=== PATIENT | female | born 1985 | race Caucasian/White ===

== ENCOUNTER 2018-05-23 22:02 | Inpatient (IN) ==
[2018-05-23] MEDS ORDERED: DEXTROSE 5%-LACTATED RINGERS 1,000 ML IV PRN (23:04)
[2018-05-23] MEDS ORDERED: OXYTOCIN/DEXTROSE 5%-WATER 30 UNITS/500 ML BAG IV ONE (23:04)
[2018-05-23] MEDS ORDERED: RINGER'S SOLUTION,LACTATED 1,000 ML IV ONE (23:04)
[2018-05-23] MEDS ORDERED: LIDOCAINE HCL/EPINEPHRINE 20 ML VIAL IJ ONE (23:39)
[2018-05-23] MEDS ORDERED: BUPIVACAINE HCL/0.9 % NACL/PF 250 ML EP PRN (23:41)
[2018-05-23] MEDS ORDERED: ONDANSETRON HCL/PF 2 MG/ML VIAL IV PRN (23:41)
[2018-05-23] MEDS ORDERED: NALOXONE HCL 1 MG/1 ML SYRG IV PRN (23:41)
[2018-05-23] MEDS ORDERED: BUPIVACAINE HCL/PF 30 ML VIAL EP SCH (23:45)
[2018-05-24 00:07] LABS: Cocaine Ur Negative (NEGATIVE); Urine Barbiturate Negative (NEGATIVE); Urine Benzodiazepines Negative (NEGATIVE); Urine Opiates Negative (NEGATIVE); Urine PCP Negative (NEGATIVE); Urine THC Negative (NEGATIVE)
[2018-05-24] MEDS ORDERED: BUPIVACAINE HCL 50 ML VIAL ONE (00:09)
--- NOTE | 2018-05-24 00:10 | ANES ---
Anesthesia Pre Procedure Eval Vitals/Labs: Last Vital Signs Temp 36.5 C 05/24/18 00:04 Pulse 84 05/24/18 00:04 Resp 16 05/24/18 00:04 BP 118/83 05/24/18 00:04 Pulse Ox 97 05/24/18 00:04 HOME MEDICATIONS folic acid 400 mcg tablet 400 mcg PO DAILY 11/06/17 [Last Taken Unknown] pediatric multivitamin no.101 chewable tablet 2 tab PO DAILY tab 11/06/17 [Last Taken Unknown] jurreiphkk-vmdvywyawzjlp-vtynnwkb 50 mg-300 mg-40 mg capsule 1 cap PO Q4H PRN 12/09/17 [Last Taken Unknown] diphenhydramine 25 mg-acetaminophen 500 mg tablet 1 tab PO HS PRN 12/09/17 [Last Taken Unknown] Allergies/Adverse Reactions: Allergies Allergy/AdvReac Type Severity Reaction Status Date / Time No Known Allergies Allergy Verified 05/23/18 23:10 - Planned Procedure Planned Procedure: labor epidural Medication List Reviewed:: Yes Allergies Verified: Yes Medical History (Updated 01/07/18 @ 15:39 by Celena Mcgee RN) Advanced maternal age affecting , antepartum (Acute) Migraines (Chronic) Body piercing Onset Date: Unknown Chronic bronchitis Onset Date: ~2014 Migraine Onset Date: ~1998 SVT (supraventricular tachycardia) Onset Date: ~2016 Only with exercise. Pt is to take a betablocker when she exercises. Post depression Onset Date: ~2006 Spontaneous Onset Date: ~2003 Urinary incontinence Onset Date: ~2007 post [place] teeth extracted Onset Date: ~2003 Asthma Onset Date: ~1997 No hospitalizations. No inhaler currently. Surgical History (Updated 11/06/17 @ 15:52 by Karson Chatterjee DO) History of suburethral sling procedure (Chronic) History of suburethral sling procedure Onset Date: ~2007 History of tonsillectomy Onset Date: ~1993 Family History (Updated 11/06/17 @ 13:48 by Celena Mcgee RN) Mother Alive and well Father Hypertension Grandmother Seizures Grandfather Colon cancer Grandmother Alive and well Grandfather Hypertension Obesity Skin cancer Sister History of anencephaly - Cardiovascular Tolerate Activity: Good Heart Sounds: S1 & S2, Regular - Anesthesia Assessment and Plan ASA Class: PS, II Anesthesia Type Plan: Epidural
--- NOTE | 2018-05-24 00:23 | HP ---
Chief Complaint - Chief Complaint Date of Service: 05/24/18 Time of Service: 00:13 Chief Complaint: Leaking fluid, contractions History of Present Illness: 33 yo at 38 4/7 wks presents to L&D with complaint of LOF since around 1745 with painful contractions starting around 2330. This complicated by advanced maternal age, asthma, migraines, and exercise-induced SVT. Rh positive Rubella immune GBS negative Medical History (Updated 01/07/18 @ 15:39 by Celena Mcgee RN) Advanced maternal age affecting , antepartum (Acute) Migraines (Chronic) Body piercing Onset Date: Unknown Chronic bronchitis Onset Date: ~2014 Migraine Onset Date: ~1998 SVT (supraventricular tachycardia) Onset Date: ~2016 Only with exercise. Pt is to take a betablocker when she exercises. Post depression Onset Date: ~2006 Spontaneous Onset Date: ~2003 Urinary incontinence Onset Date: ~2007 post [place] teeth extracted Onset Date: ~2003 Asthma Onset Date: ~1997 No hospitalizations. No inhaler currently. Surgical History: Surgical History (Updated 11/06/17 @ 15:52 by Karson Chatterjee DO) History of suburethral sling procedure (Chronic) History of suburethral sling procedure Onset Date: ~2007 History of tonsillectomy Onset Date: ~1993 Family History: Family History (Updated 11/06/17 @ 13:48 by Celena Mcgee RN) Mother Alive and well Father Hypertension Grandmother Seizures Grandfather Colon cancer Grandmother Alive and well Grandfather Hypertension Obesity Skin cancer Sister History of anencephaly Social History: Preferred Language Uzbek Smoking Status Former smoker (Last Updated 05/15/18 @ 16:02 by Maranda Romano MD) No Social History Section defined Review Of Systems (GEN) - Review of Systems Generalized/Overall Review: Present: No Symptoms Reported EENTM: Present: No Symptoms Reported Respiratory: Present: No Symptoms Reported Cardiac: Present: No Symptoms Reported Abdominal: Present: Other - contractions Genitourinary: Present: Other - LOF Musculoskeletal: Present: No Symptoms Reported Neurological: Present: No Symptoms Reported Skin: Present: No Symptoms Reported Endocrine: Present: No Symptoms Reported Allergies/Adverse Reactions: Allergies Allergy/AdvReac Type Severity Reaction Status Date / Time No Known Allergies Allergy Verified 05/23/18 23:10 Home Medications: HOME MEDICATIONS folic acid 400 mcg tablet 400 mcg PO DAILY 11/06/17 [Last Taken Unknown] pediatric multivitamin no.101 chewable tablet 2 tab PO DAILY tab 11/06/17 [Last Taken Unknown] xogmbkywqa-nukseqfgycuop-loaaucxc 50 mg-300 mg-40 mg capsule 1 cap PO Q4H PRN 12/09/17 [Last Taken Unknown] diphenhydramine 25 mg-acetaminophen 500 mg tablet 1 tab PO HS PRN 12/09/17 [Last Taken Unknown] Exam - Exam Vital Signs: Vital Signs - Last Taken Temp 36.5 C 05/24/18 00:04 Pulse 84 05/24/18 00:04 Resp 16 05/24/18 00:04 BP 118/83 05/24/18 00:04 Pulse Ox 97 05/24/18 00:04 Constitutional: Present: Alert, Oriented x3, Cooperative, Mild distress - from pain of contractions ENT Exam: Present: hearing grossly normal Breasts: Present: Exam deferred Respiratory: Present: lungs clear, no respiratory distress Cardiovascular/Chest: Present: normal peripheral pulses, regular rate, rhythm, no edema Abdomen: Present: soft, nontender, no rebound tenderness, other - gravid /Rectal: Present: Other - 4/60/-2, gross ROM - clear Extremity: Present: no pedal edema, no calf tenderness Skin Exam: Present: normal color, warm/dry, no cyanosis Neurologic: Present: alert, normal mood/affect, oriented x 3, other - DTR 2/4 Appearance: Present: appropriate appearance, appropriate insight Eye contact: Present: cooperative, good eye contact, normal speech Thoughts: Present: normal thought pattern Assessment/Plan - Assessment/Plan (1) SROM (spontaneous rupture of membranes) Assessment: Admit for routine management of labor. Epidural and pitocin PRN. Problem: Acute (2) History of supraventricular tachycardia Problem: Inactive (3) Asthma Problem: Chronic Qualifiers: Asthma severity: mild Asthma persistence: intermittent Asthma complication type: uncomplicated Qualified Code(s): J45.20 - Mild intermittent asthma, uncomplicated (4) Advanced maternal age affecting , antepartum Problem: Acute (5) Migraines Problem: Chronic Qualifiers: Migraine type: unspecified Status migrainosus presence: without status migr ainosus Intractability: not intractable Qualified Code(s): G43.909 - Migraine, unspecified, not intractable, without status migrainosus
--- NOTE | 2018-05-24 00:32 | ANES ---
Anesthesia Procedure Note Procedure Note: ANESTHESIA PROCEDURE NOTE Date of Procedure: 05/24/2018. Time of procedure: 14. Performed by: Deandre Lujan CRNA Annealer: None. Preprocedure diagnosis: Active labor. Post procedure diagnosis: Same. Procedure: Insertion of labor epidural. Indications: The patient is a 33 -year-old female in active labor requesting labor epidural for pain management. Findings: See below. Details of the procedure: The patient was placed in a sitting position. DuraPrep as well as Betadine swabs X3 was applied to the patient's back. Patient was then draped in a sterile fashion. Lidocaine 1% was infiltrated to the skin and subcutaneous tissues at the level of the L3-4 interspace. The epidural space was identified using a 18-gauge Tuohy needle with [id number] technique. Epidural catheter was inserted to a depth of 12 centimeters at skin. Negative test dose was elicited using 3 mL of 1.5% preservative-free lidocaine plus epinephrine 1 200,000. The epidural catheter was then taped and secured in place. A loading dose of 8 mL of 0.25% preservative-free bupivacaine was administered to the epidural catheter after negative aspiration for blood and CSF. EBL: Minimal. Fluids: N/A. Specimen: N/A. Post procedure condition: The patient tolerated the procedure well. No complications were noted. Thank you for this consultation. Deandre Lujan CRNA
--- NOTE | 2018-05-24 00:32 | ANES ---
Post Anesthesia Assessment - Vital Signs Vitals: Last Vital Signs Temp 36.5 C 05/24/18 00:04 Pulse 84 05/24/18 00:04 Resp 16 05/24/18 00:04 BP 118/83 05/24/18 00:04 Pulse Ox 97 05/24/18 00:04 Airway Patency: Normal - Mental Status Level Of Consciousness: Awake - N/V Assessment Nausea/Vomiting Presence: None Dehydration:: No
--- NOTE | 2018-05-24 00:57 | PN ---
Subjective - Date and Time Seen Date: 05/24/18 Time: 00:45 Subjective Narrative: Patient complains of left sided pelvic pain unrelieved by epidural. Objective - Vitals Vitals: Last Vital Signs Temp 36.5 C 05/24/18 00:04 Pulse 84 05/24/18 00:04 Resp 16 05/24/18 00:04 BP 118/83 05/24/18 00:04 Pulse Ox 97 05/24/18 00:04 Assessment/Plan Plan Narrative: 7 mL's of 0.25% preservative-free bupivacaine was administered to the epidural
[2018-05-24] MEDS ORDERED: MEPERIDINE HCL/PF 50 MG/ML SYRG ONE (01:32)
--- NOTE | 2018-05-24 01:54 | OR ---
Operative Report - Dictated Report Narrative: Spontaneous vaginal delivery of a vigorously crying viable male at 0050 on 05/25/2015 with Apgars 7 and 8, weighing 3245 g in RAUDEL position. Cord clamping delayed approximately 1 minute Placenta delivered complete, intact, with three vessel cord, but took approxim ately 45 minutes to deliver Estimated blood loss: 150 mL Anesthesia: epidural, Demerol 25 mg IV with Zofran 4 mg IV due to epidural providing inadequate relief for delivery of placenta Lacerations: Periurethral abrasions with no repair needed
[2018-05-24] MEDS ORDERED: oxyCODONE HCL/ACETAMINOPHEN 1 TAB TABLET PO PRN ×2 (02:00)
[2018-05-24] MEDS ORDERED: GLYCERIN/WITCH HAZEL LEAF 40 APPL BOX TP PRN (02:00)
[2018-05-24] MEDS ORDERED: MEPERIDINE HCL/PF 50 MG/ML SYRG IV ONE (02:00)
[2018-05-24] MEDS ORDERED: OXYTOCIN/DEXTROSE 5%-WATER 30 UNITS/500 ML BAG IV ONE (02:00)
[2018-05-24] MEDS ORDERED: BENZOCAINE/MENTHOL 81 SPRAY CAN TP PRN (02:00)
[2018-05-24] MEDS ORDERED: HYDROCORTISONE 30 APPL TUBE TP PRN (02:00)
[2018-05-24] MEDS ORDERED: SENNOSIDES 8.6 MG TABLET PO PRN (02:00)
[2018-05-24] MEDS ORDERED: BISACODYL 10 MG SUPP.RECT RC PRN (02:00)
[2018-05-24] MEDS: IBUPROFEN 800 MG TABLET PO PRN ×2 (07:27→13:25)
[2018-05-24] MEDS: DOCUSATE SODIUM 100 MG CAPSULE PO SCH (08:43)
[2018-05-24] MEDS: [UNRECOGNIZED DRUG - REMARK] PO SCH (10:52)
[2018-05-25] MEDS: DOCUSATE SODIUM 100 MG CAPSULE PO SCH ×2 (04:35→09:48)
[2018-05-25] MEDS: IBUPROFEN 800 MG TABLET PO PRN (06:04)
[2018-05-25 07:58] VITALS: BP 106/72
[2018-05-25] MEDS: [UNRECOGNIZED DRUG - REMARK] PO SCH (09:48)
--- NOTE | 2018-05-25 13:05 | PN ---
Subjective - Date and Time Seen Date: 05/25/18 Time: 13:04 Objective - Vitals Vitals: Last Vital Signs Temp 36.3 C 05/25/18 07:30 Pulse 85 05/25/18 07:30 Resp 16 05/25/18 07:30 BP 106/72 05/25/18 07:30 Pulse Ox 97 05/25/18 07:30 Patient denies complaints. Breast-feeding Lochia wnl Abdomen - soft, nontender Uterus - firm, at umbilicus - 1 No calf tenderness Impression: day #1 - s/p spontaneous vaginal delivery. Desires early discharge. Plan: Continue routine care. Routine discharge instructions. Assessment/Plan - Problems/Diagnosis (1) SROM (spontaneous rupture of membranes) Problem: Acute (2) History of supraventricular tachycardia Problem: Inactive (3) Asthma Problem: Chronic Qualifiers: Asthma severity: mild Asthma persistence: intermittent Asthma complication type: uncomplicated Qualified Code(s): J45.20 - Mild intermittent asthma, uncomplicated (4) Advanced maternal age affecting , antepartum Problem: Acute (5) Migraines Problem: Chronic Qualifiers: Migraine type: unspecified Status migrainosus presence: without status migrainosus Intractability: not intractable Qualified Code(s): G43.909 - Migraine, unspecified, not intractable, without status migrainosus
== END 2018-05-25 14:15 | disposition home or self-care (01) | DRG 807 ==
LOC: OBCLINIC 22:02 → OB 22:20 → MS 05-24 14:08
PROVIDERS: ADMIT Obstetrics & Gynecology; ATTEND Obstetrics & Gynecology
CPT/HCPCS: 59025; 80307; 88307